=== PATIENT | female | born 1965 | race Caucasian/White ===

== ENCOUNTER 2018-10-25 12:52 | Emergency (ER) | payer BC, MEDICAID ==
[~2018-10-25] VITALS: Ht 157.5 cm; Wt 105.2 kg
[2018-10-25 14:21] LABS: Basophils # (auto) 0.1 uL; Eosinophils # (auto) 0.3 uL; Hemoglobin 11.7 g/dL (12.2-16.2); Lymphocytes # (auto) 1.8 uL; Monocytes # (auto) 0.6 uL; Nucleated Red Blood Cells % 0.1 %; White Blood Cell 7.2 10^3/uL (4.4-10.8)
[2018-10-25] MEDS ORDERED: SODIUM CHLORIDE 0.9% 1,000 ML IVB ONE (14:26)
[2018-10-25 14:28] LABS: Basophils % (auto) 1.1 % (0.0-2.0); Eosinophils % (auto) 4.6 % (0.0-7.0); Hematocrit 36.6 % (36.0-46.0); Lymphocytes % (auto) 25.3 % (10.0-50.0); Mean Corpuscular Hemoglobin 27.2 pg (28.0-32.0); Monocytes % (auto) 8.7 % (0.0-12.0); Neutrophils # (auto) 4.3 uL; Neutrophils % (auto) 60.3 % (37.0-80.0); Platelet Count (auto) 338 10^3/uL (140-450); Red Cell Distribution Width 15.2 % (11.8-14.3)
[2018-10-25] MEDS ORDERED: MORPHINE SULFATE 4 MG/ML SYR/VIAL IV ONE (14:30)
[2018-10-25] MEDS ORDERED: PANTOPRAZOLE 40 MG/10 ML VIAL INJ IV ONE (14:30)
[2018-10-25] MEDS ORDERED: PROCHLORPERAZINE EDISYLATE 5 MG/ML 2ML VIAL IV ONE (14:30)
[2018-10-25 14:41] LABS: Anion Gap 6 (5-15); BUN/Creatinine Ratio 12.5; Blood Urea Nitrogen 8 mg/dL (7-18); Carbon Dioxide 28 mmol/L (21-32); Chloride 105 mmol/L (98-107); GFR African American 125 mL/min; GFR Non-African American 104 mL/min; Glucose 95 mg/dL (74-106); Magnesium 2.2 mg/dL (1.6-2.6); Potassium 3.5 mmol/L (3.5-5.1); Sodium 139 mmol/L (136-145)
[2018-10-25] MEDS ORDERED: IOHEXOL 350 MG/ML 100ML IJ ONE (17:35)
[2018-10-25 18:54] VITALS: BP 164/75
== END 2018-10-25 20:50 | disposition home or self-care (01) ==
LOC: ER 12:54
DX: R10.84 Generalized abdominal pain (principal); G43.A1 Cyclical vomiting, in migraine, intractable; F12.10 Cannabis abuse, uncomplicated; J45.909 Unspecified asthma, uncomplicated; R79.1 Abnormal coagulation profile; I10 Essential (primary) hypertension; Z90.49 Acquired absence of other specified parts of digestive tract
CPT/HCPCS: 36415; 71046; 71275; 80048; 83735; 84484; 85025; 85379; 93005; 94761; 96374; 96375; 99284; C9113; J0780; J2270; Q9967

== ENCOUNTER 2018-12-17 09:08 | Emergency (ER) | payer BC ==
[~2018-12-17] VITALS: Ht 157.5 cm; Wt 108.9 kg
[2018-12-17] MEDS ORDERED: cloNIDine HCL 0.1 MG TAB PO ONE (09:45)
[2018-12-17] MEDS ORDERED: ONDANSETRON HCL 4 MG/2 ML VIAL IV ONE (09:45)
[2018-12-17 09:50] LABS: Basophils # (auto) 0.1 uL; Eosinophils # (auto) 0 uL; Eosinophils % (auto) 0.2 % (0.0-7.0); Hemoglobin 11.6 g/dL (12.2-16.2); Lymphocytes # (auto) 1.5 uL; Monocytes # (auto) 0.8 uL; Monocytes % (auto) 7.5 % (0.0-12.0); Platelet Count (auto) 350 10^3/uL (140-450)
[2018-12-17 09:52] LABS: Basophils % (auto) 1.1 % (0.0-2.0); Hematocrit 36.2 % (36.0-46.0); Lymphocytes % (auto) 14.2 % (10.0-50.0); Mean Corpuscular Hemoglobin 25.8 pg (28.0-32.0); Mean Corpuscular Hgb Conc. 32.1 g/dL (32.0-36.0); Mean Corpuscular Volume 80.3 fL (80.0-100.0); Neutrophils # (auto) 7.9 uL; Red Blood Cells 4.51 10^6/uL (4.0-5.20); Red Cell Distribution Width 16.6 % (11.8-14.3); White Blood Cell 10.3 10^3/uL (4.4-10.8)
[2018-12-17 10:11] LABS: Alanine Aminotransferase 10 U/L (13-56); Albumin 4.1 g/dL (3.4-5.0); Anion Gap 8 (5-15); Aspartate Aminotransferase 10 U/L (15-37); BUN/Creatinine Ratio 14.8; Blood Urea Nitrogen 12 mg/dL (7-18); Calcium 8.9 mg/dL (8.5-10.1); Carbon Dioxide 26 mmol/L (21-32); Chloride 105 mmol/L (98-107); GFR African American 95 mL/min; GFR Non-African American 79 mL/min; Glucose 113 mg/dL (74-106); Potassium 3.8 mmol/L (3.5-5.1); Sodium 139 mmol/L (136-145)
[2018-12-17 10:15] LABS: INR 0.97 (0.9-1.15); Partial Thromboplastin Time 27.2 sec (23.64-32.05)
[2018-12-17 10:16] LABS: Alkaline Phosphatase 77 U/L (45-117); Bilirubin, Total 0.6 mg/dL (0.2-1.0); Total Protein 7.6 g/dL (6.4-8.2)
[2018-12-17 11:03] LABS: Urine Bacteria NONE SEEN /hpf (None Seen); Urine Blood Negative /uL (Negative); Urine Mucus FEW (None Seen); Urine Specific Gravity 1.028 (1.001-1.035); Urine WBC 3 /hpf (0 - 5)
[2018-12-17 11:10] LABS: Alcohol, Urine < 3.0 mg/dL (0-5); Amphetamine Screen, Urine NEGATIVE (NEGATIVE); Barbiturate Scree,Urine NEGATIVE (NEGATIVE); Cocaine Screen, Urine NEGATIVE (NEGATIVE); Phencyclidine Screen, Urine NEGATIVE (NEGATIVE)
[2018-12-17] MEDS ORDERED: HYDROcodone-ACET 5/325MG TAB PO ONE (11:45)
[2018-12-17 11:47] LABS: Opiate Scree,Urine POSITIVE (NEGATIVE)
[2018-12-17 11:48] LABS: Benzodiazephine Screen, Urine POSITIVE (NEGATIVE); Cannabinoid Screen, Urine POSITIVE (NEGATIVE)
[2018-12-17] MEDS ORDERED: PANTOPRAZOLE 40 MG/10 ML VIAL INJ IV ONE (12:00)
[2018-12-17 12:38] VITALS: BP 135/72
== END 2018-12-17 12:53 | disposition home or self-care (01) ==
LOC: ER 09:10
DX: K29.70 Gastritis, unspecified, without bleeding (principal); J45.909 Unspecified asthma, uncomplicated; K21.9 Gastro-esophageal reflux disease without esophagitis; I10 Essential (primary) hypertension; Z90.49 Acquired absence of other specified parts of digestive tract
CPT/HCPCS: 36415; 74176; 80053; 80307; 81001; 84484; 85025; 85610; 85730; 93005; 94761; 96374; 96375; 99284; C9113; J2405